=== PATIENT | female | born 2005 ===

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

== ENCOUNTER 2025-03-11 20:43 | Inpatient (IN) | payer BC, OTHER ==
[~2025-03-11] VITALS: Ht 152.4 cm; Wt 84.0 kg
[2025-03-11 21:01] VITALS: BP 125/74
[2025-03-11] MEDS ORDERED: FentaNYL Citrate 50 MCG/ML 2 ML Injection IV PRN (22:20)
[2025-03-11] MEDS ORDERED: Ondansetron HCl 2 MG / ML 2ML Vial IV PRN (22:25)
[2025-03-11] MEDS ORDERED: Carboprost Tromethamine 250 MCG/ML 1ML Amp IM PRN (22:25)
[2025-03-11] MEDS ORDERED: ePHEDrine Sulfate 50 MG/ML 1ML Injection XX PRN (22:25)
[2025-03-11] MEDS ORDERED: FentaNYL 2mcg/ml-Bup 0.1% Epd 250 ML EPI PRN (22:25)
[2025-03-11] MEDS ORDERED: OXYTOCIN/RINGER'S LACTATE 500 ML IV PRN (22:25)
[2025-03-11] MEDS ORDERED: Methylergonovine Maleate 0.2MG / ML 1ML Amp IM PRN (22:25)
[2025-03-11] MEDS ORDERED: Oxytocin 10 Unit / ML Vial IM PRN (22:25)
[2025-03-11] MEDS ORDERED: Tranexamic Acid 100 ML IV PRN (22:25)
[2025-03-11 23:04] LABS: BASOPHILS ABSOLUTE AUTO 0.06 K/mm3 (0.00-0.23); BASOPHILS PERCENT AUTO 0 % (0-2); EOSINOPHILS ABSOLUTE AUTO 0.09 K/mm3 (0.00-0.68); EOSINOPHILS PERCENT AUTO 1 % (0-6); Hematocrit 39.0 % (33.0-51.0); Hemoglobin 12.8 g/dL (11.5-16.0); IMMATURE GRAN ABSOLUTE AUTO 0.09 K/mm3 (0.00-0.10); IMMATURE GRAN PERCENT AUTO 1 % (0-1); LYMPHOCYTES ABSOLUTE AUTO 1.62 K/mm3 (0.84-5.20); LYMPHOCYTES PERCENT AUTO 9 % (21-46); MONOCYTES ABSOLUTE AUTO 0.97 K/mm3 (0.16-1.47); MONOCYTES PERCENT AUTO 5 % (4-13); Mean Corpuscular HGB Conc 32.8 g/dL (31.5-36.5); Mean Corpuscular Volume 85 fL (80-100); NEUTROPHILS ABSOLUTE AUTO 15.04 K/mm3 (1.96-9.15); NEUTROPHILS PERCENT AUTO 84 % (41-73); NRBC ABSOLUTE 0.00 K/mm3 (0.00-0.02); NRBC Auto 0.0 /100 WBC (0.0-0.2); Platelet Count 345 K/mm3 (150-400); RDW Coefficient Variation 13.7 % (11.7-14.2); RDW Standard Deviation 42.1 fL (35.1-46.3)
[2025-03-11] MEDS ORDERED: PRENATAL TABLE1 EAC2 PO (23:17)
[2025-03-12] VITALS (36 sets, daily range): BP systolic 93–175; BP diastolic 51–85
[2025-03-12] MEDS ORDERED: CeFAZolin Sodium 2,000 MG in NS 100 ML IV SCH (00:19)
[2025-03-12] MEDS ORDERED: FentaNYL Citrate 50 MCG/ML 2 ML Injection ONE (09:30)
[2025-03-12] MEDS ORDERED: Rho(D) Immune Globulin 300 MCG / SYR IV PRN (14:00)
[2025-03-12] MEDS ORDERED: Ketorolac Tromethamine 30mg Vial IV PRN (14:00)
[2025-03-12] MEDS ORDERED: Witch Hazel/Glycerin PADS TOP PRN (14:00)
[2025-03-12] MEDS ORDERED: FLU VACC TS2025-26(6MOS UP)/PF 45 MCG/0.5 ML SYRINGE IM SCH (14:00)
[2025-03-12] MEDS ORDERED: Benzocaine Topical Anesthetic Spray 60GM TOP PRN (14:00)
[2025-03-13 03:45] VITALS: BP 124/63
[2025-03-13 06:28] LABS: BASOPHILS ABSOLUTE AUTO 0.04 K/mm3 (0.00-0.23); BASOPHILS PERCENT AUTO 0 % (0-2); EOSINOPHILS ABSOLUTE AUTO 0.12 K/mm3 (0.00-0.68); EOSINOPHILS PERCENT AUTO 1 % (0-6); Hematocrit 35.4 % (33.0-51.0); Hemoglobin 11.6 g/dL (11.5-16.0); IMMATURE GRAN ABSOLUTE AUTO 0.06 K/mm3 (0.00-0.10); IMMATURE GRAN PERCENT AUTO 0 % (0-1); LYMPHOCYTES ABSOLUTE AUTO 2.27 K/mm3 (0.84-5.20); LYMPHOCYTES PERCENT AUTO 17 % (21-46); MONOCYTES ABSOLUTE AUTO 0.87 K/mm3 (0.16-1.47); MONOCYTES PERCENT AUTO 6 % (4-13); Mean Corpuscular HGB Conc 32.8 g/dL (31.5-36.5); Mean Corpuscular Volume 87 fL (80-100); NEUTROPHILS ABSOLUTE AUTO 10.43 K/mm3 (1.96-9.15); NEUTROPHILS PERCENT AUTO 76 % (41-73); NRBC ABSOLUTE 0.00 K/mm3 (0.00-0.02); NRBC Auto 0.0 /100 WBC (0.0-0.2); Platelet Count 290 K/mm3 (150-400); RDW Coefficient Variation 14.0 % (11.7-14.2); RDW Standard Deviation 44.0 fL (35.1-46.3)
--- NOTE | 2025-03-13 07:45 | NUR ---
PT SLEEPING AT THIS TIME, WILL CALL WHEN SHE WAKES TO FEED NB AND IS READY FOR ASSESSMENT. DECLINES PAIN AND REPORTS SCANT BLEEDING.
[2025-03-13 09:00] VITALS: BP 113/59
[2025-03-13] MEDS ORDERED: Prenatal Vit/FE Fumarate/FA 1 Tab PO SCH (09:00)
--- NOTE | 2025-03-13 10:50 | NUR ---
EPDA 8, PT STATES THAT SHE FEELS MUCH BETTER SINCE DELIVERY AND THESE FEELINGS ARE RESOLVING. DISCUSSED REACHING OUT TO IF ANY OF THESE FEELINGS WORSEN OR DO NOT IMPROVE. PROVIDED [facility] HOTLINE NUMBER IN CASE OF CRISIS. PT AND SO VERBALIZE UNDERSTANDING.
[2025-03-13 13:37] VITALS: BP 111/69
--- NOTE | 2025-03-13 14:17 | NUR ---
D/C TEACHING COMPLETED AND QUESTIONS ANSWERED. IV REMOVED. PATIENT WILL FOLLOW UP TOMORROW. D/C HOME WITH NB.
== END 2025-03-13 14:25 | disposition home or self-care (01) | DRG 807 ==
LOC: OBS 20:43 → BC 20:50 → OBS 22:19 → BC 22:21
PROVIDERS: ADMIT Obstetrics & Gynecology
PROC: 3E0334Z Introduction of Serum, Toxoid and Vaccine into Peripheral Vein, Percutaneous Approach (ICD-10-PCS; principal; 2025-03-12)
PROC: 3E03329 Introduction of Other Anti-infective into Peripheral Vein, Percutaneous Approach (ICD-10-PCS; 2025-03-12)
PROC: 10E0XZZ Delivery of Products of Conception, External Approach (ICD-10-PCS; 2025-03-12)
DX: O99.344 Other mental disorders complicating childbirth (principal); Z37.0 Single live birth; Z3A.39 39 weeks gestation of pregnancy; F31.9 Bipolar disorder, unspecified
CPT/HCPCS: 36415; 51702; 59025; 59414; 85025; 85460; 86850; 86870; 86900; 86901; 96372; 99213; A9270; J0690; J1885; J2405; J2791; J3010; J7120